=== PATIENT | female | born 1945 | race Caucasian/White ===

== ENCOUNTER → 2017-08-29 | Outpatient (CLI) | payer MEDICARE, BC ==
[~2017-08-29] MED LIST: ALPR0.254 PO; CALC-623 PO; CEFAZOLIN 1,000 MG ONE; FENTANYL PF 100 MCG/2ML ONE; GLUC1CAP18 PO; HYDROmorphone 2 MG/ML, 1ML ONE; LACT1CAP37 PO; MIDAZOLAM 1 MG/ML, 2ML ONE; MULT-658 PO; NITR50CA11 PO; PROPOFOL 10 MG/ML, 20ML ONE; ROCURONIUM 10 MG/ML ONE; SIMV40TA PO
== END | disposition home or self-care (01) ==
LOC: STAR 14:30
PROVIDERS: ATTEND Urology
DX: Z01.818 Encounter for other preprocedural examination (principal); Q62.11 Congenital occlusion of ureteropelvic junction; R82.79 Other abnormal findings on microbiological examination of urine
CPT/HCPCS: 81003; 87086; 93005

== ENCOUNTER 2017-09-05 05:27 | Inpatient (IN) | payer MEDICARE, BC ==
[~2017-09-05] VITALS: Ht 154.9 cm; Wt 61.1 kg
[~2017-09-05 05:27] MED LIST changes: -CEFAZOLIN 1,000 MG ONE; -FENTANYL PF 100 MCG/2ML ONE; -HYDROmorphone 2 MG/ML, 1ML ONE; -MIDAZOLAM 1 MG/ML, 2ML ONE; -PROPOFOL 10 MG/ML, 20ML ONE; -ROCURONIUM 10 MG/ML ONE
[2017-09-05] MEDS ORDERED: LACTATED RINGERS 1,000 ML IV SCH (06:04)
[2017-09-05 06:06] VITALS: BP 167/87
[2017-09-05] MEDS ORDERED: BUPIVACAINE/PF 0.25% ONE (07:06)
[2017-09-05] MEDS ORDERED: EPINEPHRINE 1 MG/ML, 1ML ONE (07:06)
[2017-09-05] MEDS ORDERED: METOCLOPRAMIDE 5 MG/ML, 2ML IV PRN (08:00)
[2017-09-05] MEDS ORDERED: OXYcodone 5 MG/5 ML ORAL.SOL UDC PO PRN (08:00)
[2017-09-05] MEDS ORDERED: HYDROmorphone 1 MG/ML, 1ML IV PRN ×2 (08:00→13:00)
[2017-09-05] MEDS ORDERED: hydrALAzine 20 MG/ML, 1ML IV PRN (08:00)
[2017-09-05] MEDS ORDERED: LABETALOL 5MG/ML, 20ML IV PRN (08:00)
[2017-09-05] MEDS ORDERED: ONDANSETRON 2MG/ML, 2ML IVPush PRN (08:00)
[2017-09-05] MEDS ORDERED: ACETAMINOPHEN 325 MG TABLET PO PRN (08:00)
[2017-09-05] MEDS ORDERED: BUPIVACAINE/PF-EPI 0.25% 1:200K INFIL ONE (08:16)
[2017-09-05] MEDS ORDERED: FLUORESCEIN SODIUM 500 MG/5 ML ONE (08:58)
[2017-09-05] MEDS ORDERED: ACETAMINOPHEN 650 MG/20.3 ML UDC ONE (10:39)
[2017-09-05] MEDS ORDERED: FENTANYL PF 100 MCG/2ML ONE ×3 (10:40→16:32)
[2017-09-05] MEDS ORDERED: OXYcodone 5 MG/5 ML ORAL.SOL UDC ONE (10:40)
[2017-09-05] MEDS: FENTANYL PF 100 MCG/2ML IV PRN ×4 (10:42→11:45)
[2017-09-05 12:00] VITALS: BP 126/78
[2017-09-05] MEDS ORDERED: OXYcodone/APAP 5/325MG TABLET PO PRN (13:00)
[2017-09-05] MEDS: D5%-0.45NACL+KCL 20MEQ 1,000 ML IV SCH ×2 (13:04→21:16)
[2017-09-05] MEDS ORDERED: DEXAMETHASONE 4 MG/ML, 1ML ONE (16:32)
[2017-09-05] MEDS ORDERED: MIDAZOLAM 1 MG/ML, 2ML ONE (16:32)
[2017-09-05] MEDS ORDERED: GLYCOPYRROLATE 0.2MG/1ML, 5ML ONE (16:32)
[2017-09-05] MEDS ORDERED: CEFAZOLIN 1,000 MG ONE (16:32)
[2017-09-05] MEDS ORDERED: NEOSTIGMINE 1 MG/ML, 10ML ONE (16:32)
[2017-09-05] MEDS ORDERED: PROPOFOL 10 MG/ML, 20ML ONE (16:32)
[2017-09-05] MEDS ORDERED: ONDANSETRON 2MG/ML, 2ML ONE (16:32)
[2017-09-05] MEDS ORDERED: SUCCINYLCHOLINE 20 MG/ML, 10ML ONE (16:32)
[2017-09-05] MEDS ORDERED: ROCURONIUM 10 MG/ML ONE (16:32)
[2017-09-05] MEDS: ACETAMINOPHEN 325 MG TABLET PO SCH ×2 (17:00→23:00)
[2017-09-05 19:55] VITALS: BP 121/66
[2017-09-05] MEDS: DOCUSATE 100 MG CAPSULE PO SCH (21:20)
[2017-09-06 00:14] VITALS: BP 120/66
[2017-09-06 04:45] VITALS: BP 115/65
[2017-09-06] MEDS: ACETAMINOPHEN 325 MG TABLET PO SCH ×2 (04:45→12:28)
[2017-09-06] MEDS: D5%-0.45NACL+KCL 20MEQ 1,000 ML IV SCH ×2 (04:54→12:28)
[2017-09-06 04:57] LABS: HEMATOCRIT 32.4 % (34.6-47.8); HEMOGLOBIN 10.7 g/dL (11.7-16.4)
[2017-09-06 05:09] LABS: BLOOD UREA NITROGEN 6 mg/dL (7-18)
[2017-09-06 07:58] VITALS: BP 130/71
[2017-09-06] MEDS ORDERED: LOSARTAN 25MG TABLET PO SCH (09:00)
[2017-09-06] MEDS ORDERED: NITROFURANTOIN 50 MG CAPSULE PO SCH (09:00)
[2017-09-06] MEDS: DOCUSATE 100 MG CAPSULE PO SCH (09:47)
[2017-09-06 13:32] VITALS: BP 122/68
[2017-09-06] MEDS ORDERED: OXYC-302 PO (13:45)
== END 2017-09-06 14:10 | disposition home or self-care (01) | DRG 660 ==
LOC: OUT 05:27 → 4NOR 11:55 → OUT 12:30 → DCLOUNGE 09-06 13:37
PROVIDERS: ADMIT Urology; ATTEND Urology
PROC: 0T774DZ Dilation of Left Ureter with Intraluminal Device, Percutaneous Endoscopic Approach (ICD-10-PCS; 2017-09-05)
PROC: 8E0W4CZ Robotic Assisted Procedure of Trunk Region, Percutaneous Endoscopic Approach (ICD-10-PCS; 2017-09-05)
PROC: 0TQ44ZZ Repair Left Kidney Pelvis, Percutaneous Endoscopic Approach (ICD-10-PCS; principal; 2017-09-05 07:30)
DX: N13.0 Hydronephrosis with ureteropelvic junction obstruction (principal); N39.0 Urinary tract infection, site not specified; N13.1 Hydronephrosis with ureteral stricture, not elsewhere classified
CPT/HCPCS: 36415; 80048; 85014; 85018; 88305; J0171; J0690; J1100; J1170; J2250; J2405; J2704; J2710; J3010; J3490; C1769; C2617; J0330; J3480; J7120

== ENCOUNTER → 2018-10-22 | Outpatient (CLI) | payer MEDICARE, BC ==
[~2018-10-22] MED LIST changes: +OXYC-302 PO
== END | disposition home or self-care (01) ==
LOC: CFH 12:49
PROVIDERS: ATTEND Otolaryngology
DX: J32.0 Chronic maxillary sinusitis (principal); J34.89 Other specified disorders of nose and nasal sinuses
CPT/HCPCS: 70486

== ENCOUNTER → 2019-02-25 | Outpatient (CLI) | payer MEDICARE, BC | END | disposition home or self-care (01) | LOC: CFH 14:30 | PROVIDERS: ATTEND Nurse Practitioner Family | DX: Z12.31 Encounter for screening mammogram for malignant neoplasm of breast (principal) | CPT/HCPCS: 77063; 77067 ==